=== PATIENT | male | born 1980 | race Caucasian/White ===

== ENCOUNTER 2018-02-14 14:33 | Emergency (ER) | payer SELFPAY ==
[~2018-02-14] VITALS: Ht 190.5 cm; Wt 113.4 kg
[~2018-02-14 14:33] MED LIST: HYDACE5 PO; NEOPOLHCSU OT; Prednisone20 MG PO
[2018-02-14] MEDS ORDERED: Mupirocin22 GM TOP (16:26)
[2018-02-14] MEDS ORDERED: Bactrim Ds Tab1 EACH PO (16:26)
[2018-02-14] MEDS ORDERED: CEPH500 PO (16:26)
== END 2018-02-14 16:38 | disposition home or self-care (01) ==
LOC: ER 14:33
DX: L03.115 Cellulitis of right lower limb (principal); R21 Rash and other nonspecific skin eruption; Z23 Encounter for immunization; Z87.891 Personal history of nicotine dependence
CPT/HCPCS: 90471; 90714; 99283

== ENCOUNTER 2022-03-05 09:13 | Day surgery (SDC) | payer OTHER ==
[~2022-03-05] VITALS: Ht 188 cm; Wt 95.4 kg
[~2022-03-05 09:13] MED LIST changes: +Bactrim Ds Tab1 EACH PO; +CEPH500 PO; +Mupirocin22 GM TOP
[2022-03-05] MEDS ORDERED: HYDACE10B PO (09:53)
[2022-03-05] MEDS ORDERED: IBUP200 (09:54)
--- NOTE | 2022-03-05 11:58 | NUR ---
03/05/22 1158 Nancy Corona PT. VERBALIZES PAIN IS BETTER. PT. STATES "I'M OK" WHEN ASKED IF HE WANTED ANOTHER DOSE OF PAIN MEDICATION. PT. RATES PAIN A "3-4" AFTER A TOTAL OF 50MCG IV FENTANYL.
--- NOTE | 2022-03-05 12:26 | NUR ---
03/05/22 1226 Nancy Corona PT. VERBALIZES PAIN BETTER AFTER FENTANYL RATING "4". PT. OFFERED PAIN MED BUT WANTED TO SEE HOW HE DOES. PT. 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 MOM AT HIS SIDE.
== END 2022-03-05 13:36 | disposition home or self-care (01) ==
LOC: ORSCSDS 09:13
PROVIDERS: Podiatrist Foot & Ankle Surgery
PROC: 0QSK04Z Reposition Left Fibula with Internal Fixation Device, Open Approach (ICD-10-PCS; principal; 2022-03-05 10:30)
DX: S82.62XA Displaced fracture of lateral malleolus of left fibula, initial encounter for closed fracture (principal); W10.9XXA Fall (on) (from) unspecified stairs and steps, initial encounter; Z87.891 Personal history of nicotine dependence
CPT/HCPCS: A9270; C1713; J0171; J0690; J1100; J1885; J2250; J2405; J2704; J3010